=== PATIENT | female | born 1990 | race Caucasian/White ===

== ENCOUNTER 2017-01-20 07:41 | Outpatient (CLI) | payer OTHER ==
--- NOTE | 2017-01-20 12:16 | Ultrasound Report ---
OB ULTRASOUND: 01/20/2017 CLINICAL INDICATION: anatomy. TECHNIQUE: Real-time scanning was performed with leather goods sales representative static images obtained. LAST MENSTRUAL PERIOD 08/09/2016 Clinical Age 23 weeks 3 days US Age 23 weeks 2 days EFW Hadlock 588 g EFW% Hadlock 41% Heart Rate 137 bpm EDC 05/16/2017 US EDC 05/17/2017 BPD [place] 23 weeks 1 day; Mean mm 56.1 HC [place] 23 weeks 1 day; Mean mm 210.0 AC [place] 23 weeks 5 days; Mean mm 190.3 FL [place] 23 weeks 0 days; Mean mm 40.1 Presentation variable Placental Location posterior Cervical Length 4.3 cm Amniotic Fluid 19.5 cm FINDINGS: There is a single viable intrauterine gestation, in variable position. heart rate is 137 BPM. The placenta is posterior, without evidence of previa. Amniotic fluid volume is normal, with an KARIME of 19.5. By size, the fetus measures 23.3 weeks (23.4 weeks by LMP). The following anatomic structures were visualized and appear normal: The intracranial contents, including the ventricles and posterior fossa; the lips and orbits; the spine; the heart, including 4 chamber view and outflow tracts, and diaphragm; the abdominal contents, including the stomach, the bilateral kidneys, and urinary bladder, as well as a normal 3 vessel cord insertion; 4 limbs. No free fluid or adnexal lesion is appreciated. IMPRESSION: SINGLE VIABLE INTRAUTERINE GESTATION, WITH SIZE IN KEEPING WITH LMP DATING. NORMAL ANATOMIC SURVEY. MTDD
== END 2017-01-20 07:42 | disposition home or self-care (01) ==
LOC: DI 07:41
PROVIDERS: ATTEND Obstetrics & Gynecology
DX: Z34.92 Encounter for supervision of normal pregnancy, unspecified, second trimester (principal)
CPT/HCPCS: 76811

== ENCOUNTER 2018-04-14 21:09 | Emergency (ER) | payer OTHER ==
[2018-04-14] MEDS ORDERED: SODIUM CHLORIDE 0.9% 1,000 ML IV ONE (21:47)
[2018-04-14] MEDS ORDERED: ACETAMINOPHEN 325 MG TABLET PO STA (21:50)
--- NOTE | 2018-04-14 21:50 | ED Physician Documentation ---
History of Present Illness - Stated complaint Stated Complaint: BREAST PX - Chief complaint Chief Complaint: General - History obtained from History obtained from: Patient - History of Present Illness Timing: Last night Pain level now: 7 Improved by: nothing Worsened by: no exacerbating factors - Additonal information Additional information: has been her 10-month old; last night patient developed chills/sweats and generalized headache. These symptoms have been waxing and waning today, and this evening she checked her temperature and it was 102. She feels mild discomfort and fullness of left breast but has not noticed focal swelling nor rash Review of Systems Constitutional: reports: Fever, Chills, Sweats Skin: denies: Rash Neurologic: reports: Headache PD PAST MEDICAL HISTORY - Past Medical History Past Medical History: No - Past Surgical History Past Surgical History: No - Present Medications Home Medications: Ambulatory Orders Medication Instructions Recorded Confirmed Clindamycin HCl [Clindamycin 300MG 300 mg PO TID #20 capsule 04/14/18 CAP] - Allergies Allergies/Adverse Reactions: Allergies Allergy/AdvReac Type Severity Reaction Status Date / Time Penicillins Allergy Unknown Verified 04/14/18 21:48 - Social History Does the pt smoke?: No Smoking Status: Never smoker Does the pt drink ETOH?: Yes Does the pt have substance abuse?: No - Immunizations Immunizations are current?: Yes - POLST Patient has POLST: No PD ED PE NORMAL - Vitals Vital signs reviewed: Yes - General General: Alert and oriented X 3, No acute distress, Well developed/nourished - HEENT HEENT: Moist mucous membranes - Neck Neck: Supple, no meningeal sign PD ED PE EXPANDED - Female Female : Other (breast exam performed with arts and sciences dean (ABEL Kessler). there is faint erythema with sharp margins adjacent to left areola. There is no discharge, fluctuance, or palpable mass/abscess. she has mild tenderness to palpation left breast immediately cranial to the areola) Results - Vitals Vitals: Vital Signs - 24 hr 04/14/18 04/14/18 04/14/18 21:11 22:32 23:05 Temperature 39.4 C H 37.6 C H 37.4 C Heart Rate 125 H 103 H 98 Respiratory 18 16 18 Rate Blood Pressure 120/87 H 118/73 122/72 O2 Saturation 99 100 100 Oxygen O2 Source Room air - Labs Labs: Laboratory Tests 04/14/18 04/14/18 04/14/18 21:40 21:40 21:40 WBC 9.6 RBC 4.80 Hgb 14.1 Hct 40.5 MCV 84.5 MCH 29.4 MCHC 34.7 RDW 13.3 Plt Count 207 MPV 7.9 Neut # (Auto) 8.0 H Lymph # (Auto) 0.9 L [place] # (Auto) 0.6 Eos # (Auto) 0.1 Baso # (Auto) 0.0 Absolute Nucleated RBC 0.01 Nucleated RBC % 0.1 Sodium 133 L Potassium 3.9 Chloride 99 L Carbon Dioxide 25 Anion Gap 9.0 BUN 10 Creatinine 0.7 Estimated GFR (MDRD) 100 Glucose 121 H Lactic Acid 1.0 Calcium 8.9 Total Bilirubin 0.8 AST 18 ALT 17 Alkaline Phosphatase 103 Total Protein 7.8 Albumin 4.4 Globulin 3.4 Albumin/Globulin Ratio 1.3 Lipase 41 PD MEDICAL DECISION MAKING - ED course Complexity details: reviewed results, re-evaluated patient, considered differential, d/w patient - Sepsis Event Vital Signs: Vital Signs - 24 hr 04/14/18 04/14/18 04/14/18 21:11 22:32 23:05 Temperature 39.4 C H 37.6 C H 37.4 C Heart Rate 125 H 103 H 98 Respiratory 18 16 18 Rate Blood Pressure 120/87 H 118/73 122/72 O2 Saturation 99 100 100 Oxygen O2 Source Room air Departure - Departure Disposition: 01 Home, Self Care Clinical Impression: Mastitis Condition: Good Instructions: ED Breast Infec Follow-Up: Boom Amaro ARNP [Primary Care Provider] - Prescriptions: Clindamycin HCl [Clindamycin 300MG CAP] 300 mg PO TID #20 capsule Discharge Date/Time: 04/14/18 23:05
[2018-04-14 21:52] LABS: BASOPHILS % (AUTO) 0.4 %; EOSINOPHILS # (AUTO) 0.1 10^3/uL (0.0-0.7); EOSINOPHILS % (AUTO) 1.3 %; HGB - HEMOGLOBIN 14.1 g/dL (12.0-16.0); LYMPHOCYTES # (AUTO) 0.9 10^3/uL (1.5-3.5); MEAN CORPUSCULAR HEMOGLOBIN 29.4 pg (27.0-31.0); MEAN CORPUSCULAR HGB CONC 34.7 g/dL (32.0-36.0); MEAN CORPUSCULAR VOLUME 84.5 fL (81.0-99.0); MEAN PLATELET VOLUME 7.9 fL (7.9-10.8); MONOCYTES # (AUTO) 0.6 10^3/uL (0.0-1.0); MONOCYTES % (AUTO) 5.9 %; NEUTROPHILS % (AUTO) 83.4 %; PLT - PLATELET COUNT 207 10^3/uL (130-450); RED CELL DISTRIBUTION WIDTH 13.3 % (12.0-15.0); WHITE BLOOD COUNT 9.6 x10^3/uL (4.8-10.8)
[2018-04-14 22:03] LABS: ALBUMIN 4.4 g/dL (3.2-5.5); ALBUMIN/GLOBULIN RATIO 1.3 (1.0-2.2); BILIRUBIN,TOTAL 0.8 mg/dL (0.2-1.0); CALCIUM 8.9 mg/dL (8.5-10.3); CREATININE 0.7 mg/dL (0.4-1.0); TOTAL PROTEIN 7.8 g/dL (6.7-8.2)
[2018-04-14] MEDS ORDERED: CLINDAMYCIN 600 MG/50 ML 50 ML IV STA (22:03)
[2018-04-14 23:09] VITALS: BP 122/72
== END 2018-04-14 23:05 | disposition home or self-care (01) ==
LOC: ED 21:09
DX: N61.0 Mastitis without abscess (principal)
CPT/HCPCS: 36415; 80053; 83605; 83690; 85025; 87040; 96365; 99283; A9270